=== PATIENT | male | born 1995 | race Caucasian/White ===

== ENCOUNTER 2019-04-01 16:47 | Inpatient (IN) ==
[2019-04-01] MEDS ORDERED: CLINDAMYCIN INJ 900 MG in PREMIX 1 EACH IV STA (17:32)
[2019-04-01] MEDS ORDERED: KETOROLAC 30 MG/1 ML VIAL IV STA (17:32)
[2019-04-01] MEDS ORDERED: SULFAMETHOX/TRIMETHOPRIM 800-160 MG TABLET PO STA (17:32)
[2019-04-01 18:36] LABS: Basophils # 0.1 10*3/uL (0.0-0.2); Basophils % 0.6 % (0.0-0.8); Eosinophils # 0.1 10*3/uL (0.0-0.87); Hematocrit 40.5 VOL% (42.0-52.0); Hemoglobin 13.1 GM/DL (14.0-18.0); Immature Granulocytes % 0.3 %; Immature Granulocytes Absolute 0.04 #; Lymphocytes % 24.1 % (21.2-54.2); Mean Corpuscular HGB Conc 32.3 GM/DL (32-36); Mean Corpuscular Volume 87.9 FL (87-102); Mean Platelet Volume 8.8 FL (9.6-12.0); Monocytes % 8.6 % (1.7-12.7); Neutrophils % 65.4 % (38.7-73.9); Platelet Count 296 T/CUMM (130-400); Red Blood Count 4.61 MC/CUMM (3.8-5.5); Red Cell Distribution Width 13.2 % (9.3-17.3); White Blood Count 12.3 T/CUMM (4-12)
[2019-04-01 19:01] LABS: Albumin 3.4 G/DL (3.4-5.0); Bilirubin,Total 0.5 MG/DL (0.2-1.0); Calcium 9.1 MG/DL (8.5-10.1); Osmolality,Calculated 270.8 MOS/KG (273-304); Total Protein 8.1 G/DL (6.4-8.3)
[2019-04-01 19:39] LABS: Sedimentation Rate-Westergren 28 MM/HR (0-15)
[2019-04-01] MEDS ORDERED: KETOROLAC 15 MG/1 ML VIAL IV PRN (22:09)
[2019-04-01] MEDS ORDERED: ACETAMINOPHEN 325 MG TABLET PO PRN (22:09)
[2019-04-01] MEDS: SODIUM CHLORIDE 0.9% 1,000 ML IV SCH (22:45)
[2019-04-01] MEDS: VANCOMYCIN INJ 1,000 MG in SODIUM CHLORIDE 0.9% 250 ML IV SCH (22:48)
[2019-04-02] MEDS: NICOTINE 21 MG/24 HR PATCH TRANSDERM SCH ×2 (00:32→11:49)
[2019-04-02] MEDS: CEFEPIME 1,000 MG in SODIUM CHLORIDE 0.9% 100 ML IV SCH ×5 (00:32→23:43)
[2019-04-02] MEDS ORDERED: INFLUENZA VIRUS VACCINE 0.5 ML SYRINGE IM ONE (01:34)
[2019-04-02 04:44] LABS: Basophils # 0.1 10*3/uL (0.0-0.2); Basophils % 0.8 % (0.0-0.8); Eosinophils # 0.2 10*3/uL (0.0-0.87); Eosinophils % 3.5 % (0.00-10.9); Hematocrit 36.9 VOL% (42.0-52.0); Hemoglobin 12.1 GM/DL (14.0-18.0); Immature Granulocytes % 0.3 %; Immature Granulocytes Absolute 0.02 #; Lymphocytes # 2.4 10*3/uL (1.4-4.0); Mean Corpuscular HGB Conc 32.8 GM/DL (32-36); Mean Corpuscular Volume 87.9 FL (87-102); Mean Platelet Volume 8.9 FL (9.6-12.0); Monocytes % 8.9 % (1.7-12.7); Neutrophils % 49.5 % (38.7-73.9); Platelet Count 224 T/CUMM (130-400); Red Cell Distribution Width 13.2 % (9.3-17.3); White Blood Count 6.4 T/CUMM (4-12)
[2019-04-02 04:59] LABS: Calcium 8.8 MG/DL (8.5-10.1); Osmolality,Calculated 277.4 MOS/KG (273-304)
[2019-04-02] MEDS: VANCOMYCIN INJ 1,000 MG in SODIUM CHLORIDE 0.9% 250 ML IV SCH ×3 (06:03→22:00)
[2019-04-02] MEDS ORDERED: NEOMYCIN/POLYMYXIN/BACITRACIN OINT 28.4 GM TUBE TOP ONE (10:24)
[2019-04-02] MEDS ORDERED: ONDANSETRON 4 MG/2 ML VIAL ONE (10:55)
[2019-04-02] MEDS ORDERED: MIDAZOLAM 2 MG/2 ML VIAL ONE (10:55)
[2019-04-02] MEDS ORDERED: LIDOCAINE 2% 5 ML VIAL ONE (10:55)
[2019-04-02] MEDS ORDERED: SEVOFLURANE 1 UNIT/15 MINUTE INH ONE (10:55)
[2019-04-02] MEDS ORDERED: fentaNYL 100 MCG/2 ML VIAL ONE (10:55)
[2019-04-02] MEDS ORDERED: PROPOFOL 200 MG/20 ML VIAL IV ONE (10:55)
[2019-04-02] MEDS ORDERED: HYDROmorphone 2 MG/1 ML VIAL ONE (11:25)
[2019-04-02] MEDS: HYDROmorphone 2 MG/1 ML VIAL IV PRN ×4 (11:26→11:42)
[2019-04-02] MEDS: SODIUM CHLORIDE 0.9% 1,000 ML IV SCH ×2 (11:49→17:15)
[2019-04-02] MEDS: MORPHINE 4 MG/1 ML VIAL IV PRN ×2 (17:15→21:54)
[2019-04-02] MEDS: ONDANSETRON 4 MG/2 ML VIAL IV PRN (17:15)
[2019-04-02] MEDS: ENOXAPARIN 40 MG/0.4 ML SYRINGE SUBCUT SCH ×2 (17:56→21:56)
[2019-04-03 04:17] LABS: Basophils % 0.5 % (0.0-0.8); Eosinophils # 0.2 10*3/uL (0.0-0.87); Eosinophils % 2.4 % (0.00-10.9); Hematocrit 39.9 VOL% (42.0-52.0); Hemoglobin 13.1 GM/DL (14.0-18.0); Immature Granulocytes % 0.4 %; Immature Granulocytes Absolute 0.03 #; Lymphocytes # 2.4 10*3/uL (1.4-4.0); Lymphocytes % 32.7 % (21.2-54.2); Mean Corpuscular HGB Conc 32.8 GM/DL (32-36); Mean Corpuscular Volume 86.4 FL (87-102); Mean Platelet Volume 8.9 FL (9.6-12.0); Monocytes % 8.7 % (1.7-12.7); Neutrophils % 55.3 % (38.7-73.9); Platelet Count 249 T/CUMM (130-400); Red Blood Count 4.62 MC/CUMM (3.8-5.5); Red Cell Distribution Width 12.6 % (9.3-17.3); White Blood Count 7.4 T/CUMM (4-12)
[2019-04-03 05:17] LABS: Osmolality,Calculated 278.3 MOS/KG (273-304)
[2019-04-03] MEDS: CEFEPIME 1,000 MG in SODIUM CHLORIDE 0.9% 100 ML IV SCH ×3 (05:22→18:27)
[2019-04-03] MEDS: VANCOMYCIN INJ 1,000 MG in SODIUM CHLORIDE 0.9% 250 ML IV SCH ×3 (06:34→22:50)
[2019-04-03] MEDS ORDERED: CHLORHEXIDINE 4% SOLN 118 ML BOTTLE TOP ONE (07:19)
[2019-04-03] MEDS: MORPHINE 4 MG/1 ML VIAL IV PRN (08:10)
[2019-04-03] MEDS: SODIUM CHLORIDE 0.9% 1,000 ML IV SCH ×2 (15:29→19:36)
[2019-04-03] MEDS: ENOXAPARIN 40 MG/0.4 ML SYRINGE SUBCUT SCH (22:50)
[2019-04-04] MEDS: CEFEPIME 1,000 MG in SODIUM CHLORIDE 0.9% 100 ML IV SCH ×4 (00:38→18:32)
[2019-04-04] MEDS: SODIUM CHLORIDE 0.9% 1,000 ML IV SCH ×2 (06:21→10:57)
[2019-04-04] MEDS: VANCOMYCIN INJ 1,000 MG in SODIUM CHLORIDE 0.9% 250 ML IV SCH ×3 (06:42→22:46)
[2019-04-04] MEDS: MORPHINE 4 MG/1 ML VIAL IV PRN (09:39)
[2019-04-04] MEDS: ENOXAPARIN 40 MG/0.4 ML SYRINGE SUBCUT SCH (22:05)
[2019-04-05] MEDS: CEFEPIME 1,000 MG in SODIUM CHLORIDE 0.9% 100 ML IV SCH ×5 (00:53→23:10)
[2019-04-05] MEDS: ONDANSETRON 4 MG/2 ML VIAL IV PRN ×2 (01:14→06:12)
[2019-04-05] MEDS: MORPHINE 4 MG/1 ML VIAL IV PRN ×4 (01:15→21:33)
[2019-04-05] MEDS: SODIUM CHLORIDE 0.9% 1,000 ML IV SCH ×3 (01:46→16:21)
[2019-04-05] MEDS: LACTULOSE 20 GM/30 ML UDCUP PO PRN ×2 (01:46→06:12)
[2019-04-05 04:58] LABS: Basophils % 0.6 % (0.0-0.8); Eosinophils # 0.2 10*3/uL (0.0-0.87); Eosinophils % 2.6 % (0.00-10.9); Hematocrit 39.7 VOL% (42.0-52.0); Hemoglobin 12.9 GM/DL (14.0-18.0); Immature Granulocytes % 0.4 %; Immature Granulocytes Absolute 0.03 #; Lymphocytes # 1.9 10*3/uL (1.4-4.0); Lymphocytes % 26.8 % (21.2-54.2); Mean Corpuscular HGB Conc 32.5 GM/DL (32-36); Mean Corpuscular Volume 85.6 FL (87-102); Mean Platelet Volume 8.8 FL (9.6-12.0); Monocytes % 5.5 % (1.7-12.7); Neutrophils % 64.1 % (38.7-73.9); Platelet Count 302 T/CUMM (130-400); Red Blood Count 4.64 MC/CUMM (3.8-5.5); Red Cell Distribution Width 12.4 % (9.3-17.3); White Blood Count 7.1 T/CUMM (4-12)
[2019-04-05 05:25] LABS: Calcium 8.8 MG/DL (8.5-10.1); Osmolality,Calculated 283.1 MOS/KG (273-304)
[2019-04-05] MEDS: VANCOMYCIN INJ 1,000 MG in SODIUM CHLORIDE 0.9% 250 ML IV SCH (06:13)
[2019-04-05] MEDS: VANCOMYCIN INJ 1,250 MG in SODIUM CHLORIDE 0.9% 250 ML IV SCH (15:13)
[2019-04-05] MEDS: ENOXAPARIN 40 MG/0.4 ML SYRINGE SUBCUT SCH (22:38)
[2019-04-06] MEDS: VANCOMYCIN INJ 1,250 MG in SODIUM CHLORIDE 0.9% 250 ML IV SCH ×3 (00:05→17:24)
[2019-04-06 05:04] LABS: Basophils # 0.1 10*3/uL (0.0-0.2); Eosinophils # 0.2 10*3/uL (0.0-0.87); Eosinophils % 3.9 % (0.00-10.9); Hematocrit 39.1 VOL% (42.0-52.0); Hemoglobin 12.7 GM/DL (14.0-18.0); Immature Granulocytes % 0.3 %; Immature Granulocytes Absolute 0.02 #; Lymphocytes # 2.5 10*3/uL (1.4-4.0); Lymphocytes % 43.2 % (21.2-54.2); Mean Corpuscular HGB Conc 32.5 GM/DL (32-36); Mean Corpuscular Volume 86.9 FL (87-102); Mean Platelet Volume 8.9 FL (9.6-12.0); Monocytes % 6.2 % (1.7-12.7); Neutrophils % 45.4 % (38.7-73.9); Platelet Count 307 T/CUMM (130-400); Red Cell Distribution Width 12.6 % (9.3-17.3); White Blood Count 5.8 T/CUMM (4-12)
[2019-04-06 05:30] LABS: Calcium 8.8 MG/DL (8.5-10.1)
[2019-04-06] MEDS: CEFEPIME 1,000 MG in SODIUM CHLORIDE 0.9% 100 ML IV SCH (05:50)
[2019-04-06] MEDS: MORPHINE 4 MG/1 ML VIAL IV PRN (09:14)
[2019-04-06] MEDS: SODIUM CHLORIDE 0.9% 1,000 ML IV SCH ×2 (13:50→21:16)
[2019-04-06] MEDS: ENOXAPARIN 40 MG/0.4 ML SYRINGE SUBCUT SCH ×2 (21:49)
[2019-04-07] MEDS: VANCOMYCIN INJ 1,250 MG in SODIUM CHLORIDE 0.9% 250 ML IV SCH ×3 (02:28→19:26)
[2019-04-07] MEDS: SODIUM CHLORIDE 0.9% 1,000 ML IV SCH (05:07)
[2019-04-07 05:15] LABS: Basophils # 0.1 10*3/uL (0.0-0.2); Basophils % 0.7 % (0.0-0.8); Eosinophils # 0.2 10*3/uL (0.0-0.87); Eosinophils % 2.9 % (0.00-10.9); Hematocrit 36.7 VOL% (42.0-52.0); Hemoglobin 12.1 GM/DL (14.0-18.0); Immature Granulocytes % 0.4 %; Immature Granulocytes Absolute 0.03 #; Monocytes % 7.4 % (1.7-12.7); Neutrophils % 32.6 % (38.7-73.9); Platelet Count 284 T/CUMM (130-400); Red Blood Count 4.22 MC/CUMM (3.8-5.5); Red Cell Distribution Width 12.8 % (9.3-17.3); White Blood Count 7.1 T/CUMM (4-12)
[2019-04-07 05:33] LABS: Calcium 8.7 MG/DL (8.5-10.1)
[2019-04-07 05:36] LABS: Eosinophils 4 % (0-10); Hypochromasia 1+; Lymphocytes 51 % (20-55); Platelet Estimate Adequate; Segmented Neutrophils 37 % (50-85); Total Cells Counted 100
[2019-04-07] MEDS ORDERED: IBUPROFEN 600 MG TABLET PO PRN (06:45)
[2019-04-07] MEDS: ENOXAPARIN 40 MG/0.4 ML SYRINGE SUBCUT SCH (22:07)
[2019-04-08] MEDS: VANCOMYCIN INJ 1,250 MG in SODIUM CHLORIDE 0.9% 250 ML IV SCH ×3 (02:39→18:14)
[2019-04-08] MEDS: ENOXAPARIN 40 MG/0.4 ML SYRINGE SUBCUT SCH (21:20)
[2019-04-09] MEDS: VANCOMYCIN INJ 1,250 MG in SODIUM CHLORIDE 0.9% 250 ML IV SCH ×3 (01:04→17:09)
[2019-04-09 10:01] LABS: Calcium 8.5 MG/DL (8.5-10.1); Osmolality,Calculated 278.4 MOS/KG (273-304)
[2019-04-09] MEDS: ENOXAPARIN 40 MG/0.4 ML SYRINGE SUBCUT SCH (21:16)
[2019-04-10] MEDS: VANCOMYCIN INJ 1,250 MG in SODIUM CHLORIDE 0.9% 250 ML IV SCH ×3 (00:53→17:00)
[2019-04-10 07:25] LABS: Calcium 9.2 MG/DL (8.5-10.1); Osmolality,Calculated 286.8 MOS/KG (273-304)
[2019-04-10 16:25] VITALS: BP 131/64
== END 2019-04-10 17:00 | disposition home or self-care (01) | DRG 580 ==
LOC: N.ED 16:47 → SUATTDRO 19:15 → N.EDINP 19:15 → N.3E 19:50
PROVIDERS: ADMIT Internal Medicine; ATTEND Internal Medicine Cardiovascular Disease

== ENCOUNTER 2019-05-07 05:45 | Inpatient (IN) ==
[2019-05-07 06:30] LABS: Basophils # 0.1 10*3/uL (0.0-0.2); Basophils % 0.7 % (0.0-0.8); Eosinophils # 0.1 10*3/uL (0.0-0.87); Eosinophils % 1.2 % (0.00-10.9); Hematocrit 40.3 VOL% (42.0-52.0); Hemoglobin 12.7 GM/DL (14.0-18.0); Immature Granulocytes % 0.3 %; Immature Granulocytes Absolute 0.02 #; Lymphocytes # 2.3 10*3/uL (1.4-4.0); Lymphocytes % 31.2 % (21.2-54.2); Mean Corpuscular HGB Conc 31.5 GM/DL (32-36); Mean Corpuscular Volume 87.6 FL (87-102); Mean Platelet Volume 8.4 FL (9.6-12.0); Monocytes % 4.5 % (1.7-12.7); Neutrophils % 62.1 % (38.7-73.9); Platelet Count 434 T/CUMM (130-400); Red Cell Distribution Width 13.3 % (9.3-17.3); White Blood Count 7.4 T/CUMM (4-12)
[2019-05-07 06:46] LABS: Calcium 9.2 MG/DL (8.5-10.1); Osmolality,Calculated 274.7 MOS/KG (273-304)
[2019-05-07 09:31] LABS: Barbiturates Screen,Urine Negative (Negative); Benzodiazepines Screen,Urine Negative (Negative); Cannabinoid Screen,Urine Positive (Negative); Opiate Screen,Urine Negative (Negative); Phencyclidine Screen,Urine Negative (Negative)
[2019-05-07] MEDS ORDERED: ONDANSETRON 4 MG/2 ML VIAL IV PRN (11:06)
[2019-05-07] MEDS ORDERED: ACETAMINOPHEN 325 MG TABLET PO PRN (11:06)
[2019-05-07] MEDS ORDERED: amLODIPine 5 MG TABLET PO STA (11:29)
[2019-05-07] MEDS ORDERED: VANCOMYCIN INJ 1,500 MG in SODIUM CHLORIDE 0.9% 500 ML IV SCH (11:30)
[2019-05-07] MEDS: ENOXAPARIN 40 MG/0.4 ML SYRINGE SUBCUT SCH (13:37)
[2019-05-07] MEDS: VANCOMYCIN INJ 1,250 MG in SODIUM CHLORIDE 0.9% 250 ML IV SCH ×2 (14:14→20:57)
[2019-05-07] MEDS: SODIUM CHLORIDE 0.9% 1,000 ML IV SCH ×2 (14:14→20:58)
[2019-05-07 14:47] LABS: HIV Antigen/Antibody Result Nonreactive (Nonreactive)
[2019-05-07 14:51] LABS: Hepatitis B Core IgM Quant 0.09 Index; Hepatitis B Surface Ag Quant 0.14 Index; Hepatitis B Surface Ag Result Negative (Negative); Hepatitis C Virus Ab Quant < 0.02 Index; Hepatitis C Virus Ab Result Negative (Negative)
[2019-05-08] MEDS: SODIUM CHLORIDE 0.9% 1,000 ML IV SCH ×2 (03:02→12:37)
[2019-05-08] MEDS: VANCOMYCIN INJ 1,250 MG in SODIUM CHLORIDE 0.9% 250 ML IV SCH ×3 (04:59→21:16)
[2019-05-08 05:40] LABS: Basophils # 0.1 10*3/uL (0.0-0.2); Eosinophils # 0.2 10*3/uL (0.0-0.87); Eosinophils % 3.6 % (0.00-10.9); Hematocrit 38.6 VOL% (42.0-52.0); Hemoglobin 12.3 GM/DL (14.0-18.0); Immature Granulocytes % 0.4 %; Immature Granulocytes Absolute 0.02 #; Lymphocytes # 2.4 10*3/uL (1.4-4.0); Lymphocytes % 49.7 % (21.2-54.2); Mean Corpuscular HGB Conc 31.9 GM/DL (32-36); Mean Corpuscular Volume 87.3 FL (87-102); Mean Platelet Volume 8.5 FL (9.6-12.0); Monocytes % 7.3 % (1.7-12.7); Platelet Count 396 T/CUMM (130-400); Red Blood Count 4.42 MC/CUMM (3.8-5.5); Red Cell Distribution Width 13.2 % (9.3-17.3); White Blood Count 4.8 T/CUMM (4-12)
[2019-05-08 06:11] LABS: Eosinophils 1 % (0-10); Lymphocytes 57 % (20-55); Myelocytes 1 %; Platelet Estimate Normal; Polychromasia Slight; Segmented Neutrophils 36 % (50-85); Total Cells Counted 100
[2019-05-08 06:12] LABS: Albumin 2.9 G/DL (3.4-5.0); Bilirubin,Total 1.3 MG/DL (0.2-1.0); Calcium 8.4 MG/DL (8.5-10.1); Osmolality,Calculated 275.5 MOS/KG (273-304); Total Protein 6.6 G/DL (6.4-8.3)
[2019-05-08] MEDS: NICOTINE 21 MG/24 HR PATCH TRANSDERM SCH (10:11)
[2019-05-08] MEDS: amLODIPine 5 MG TABLET PO SCH (10:12)
[2019-05-08] MEDS: PANTOPRAZOLE 40 MG TABLET PO SCH (10:13)
[2019-05-08] MEDS: buPROPion 100 MG TABLET PO SCH ×2 (11:14→21:15)
[2019-05-08] MEDS: ENOXAPARIN 40 MG/0.4 ML SYRINGE SUBCUT SCH (13:56)
[2019-05-09 05:50] LABS: Basophils # 0.1 10*3/uL (0.0-0.2); Basophils % 1.1 % (0.0-0.8); Eosinophils # 0.1 10*3/uL (0.0-0.87); Eosinophils % 2.2 % (0.00-10.9); Hematocrit 41.2 VOL% (42.0-52.0); Hemoglobin 13.2 GM/DL (14.0-18.0); Lymphocytes # 2.7 10*3/uL (1.4-4.0); Lymphocytes % 48.5 % (21.2-54.2); Mean Corpuscular Volume 87.7 FL (87-102); Mean Platelet Volume 8.3 FL (9.6-12.0); Neutrophils % 42.2 % (38.7-73.9); Platelet Count 383 T/CUMM (130-400); Red Cell Distribution Width 13.2 % (9.3-17.3); White Blood Count 5.5 T/CUMM (4-12)
[2019-05-09 06:21] LABS: Albumin 2.9 G/DL (3.4-5.0); Bilirubin,Total 0.9 MG/DL (0.2-1.0); Calcium 8.5 MG/DL (8.5-10.1); Osmolality,Calculated 275.5 MOS/KG (273-304); Total Protein 6.6 G/DL (6.4-8.3)
[2019-05-09] MEDS: VANCOMYCIN INJ 1,250 MG in SODIUM CHLORIDE 0.9% 250 ML IV SCH ×2 (10:09→18:49)
[2019-05-09] MEDS: PANTOPRAZOLE 40 MG TABLET PO SCH (10:10)
[2019-05-09] MEDS: NICOTINE 21 MG/24 HR PATCH TRANSDERM SCH (10:10)
[2019-05-09] MEDS: amLODIPine 5 MG TABLET PO SCH (10:10)
[2019-05-09] MEDS: buPROPion 100 MG TABLET PO SCH ×2 (10:10→23:16)
[2019-05-09] MEDS: ENOXAPARIN 40 MG/0.4 ML SYRINGE SUBCUT SCH (16:40)
[2019-05-09] MEDS: SODIUM CHLORIDE 0.9% 1,000 ML IV SCH (18:50)
[2019-05-09] MEDS ORDERED: VANCOMYCIN INJ 1,750 MG in SODIUM CHLORIDE 0.9% 500 ML IV ONE (22:00)
[2019-05-10 05:16] LABS: Basophils # 0.1 10*3/uL (0.0-0.2); Eosinophils # 0.2 10*3/uL (0.0-0.87); Eosinophils % 2.4 % (0.00-10.9); Hematocrit 39.2 VOL% (42.0-52.0); Hemoglobin 12.5 GM/DL (14.0-18.0); Immature Granulocytes % 0.5 %; Immature Granulocytes Absolute 0.03 #; Lymphocytes # 2.4 10*3/uL (1.4-4.0); Lymphocytes % 39.4 % (21.2-54.2); Mean Corpuscular HGB Conc 31.9 GM/DL (32-36); Mean Corpuscular Volume 88.1 FL (87-102); Mean Platelet Volume 8.5 FL (9.6-12.0); Monocytes % 5.5 % (1.7-12.7); Neutrophils % 51.2 % (38.7-73.9); Platelet Count 386 T/CUMM (130-400); Red Blood Count 4.45 MC/CUMM (3.8-5.5); Red Cell Distribution Width 13.4 % (9.3-17.3); White Blood Count 6.2 T/CUMM (4-12)
[2019-05-10 05:46] LABS: Albumin 2.7 G/DL (3.4-5.0); Bilirubin,Total 0.4 MG/DL (0.2-1.0); Calcium 8.4 MG/DL (8.5-10.1); Osmolality,Calculated 285.1 MOS/KG (273-304); Total Protein 6.2 G/DL (6.4-8.3)
[2019-05-10] MEDS: VANCOMYCIN INJ 1,250 MG in SODIUM CHLORIDE 0.9% 250 ML IV SCH ×3 (06:43→21:56)
[2019-05-10] MEDS ORDERED: MAGNESIUM SULF RIDER 4 GM in PREMIX 1 EACH IV PRN (08:00)
[2019-05-10] MEDS ORDERED: MAGNESIUM SULF RIDER 2 GM in PREMIX 1 EACH IV PRN (08:00)
[2019-05-10] MEDS: SODIUM CHLORIDE 0.9% 1,000 ML IV SCH ×3 (08:19→23:49)
[2019-05-10] MEDS: amLODIPine 5 MG TABLET PO SCH (08:21)
[2019-05-10] MEDS: buPROPion 100 MG TABLET PO SCH ×2 (08:21→20:27)
[2019-05-10] MEDS: NICOTINE 21 MG/24 HR PATCH TRANSDERM SCH (08:21)
[2019-05-10] MEDS: PANTOPRAZOLE 40 MG TABLET PO SCH (08:21)
[2019-05-10] MEDS: ENOXAPARIN 40 MG/0.4 ML SYRINGE SUBCUT SCH (11:26)
[2019-05-11] MEDS: VANCOMYCIN INJ 1,250 MG in SODIUM CHLORIDE 0.9% 250 ML IV SCH (05:40)
[2019-05-11] MEDS: SODIUM CHLORIDE 0.9% 1,000 ML IV SCH (06:16)
[2019-05-11] MEDS: amLODIPine 5 MG TABLET PO SCH (08:27)
[2019-05-11] MEDS: NICOTINE 21 MG/24 HR PATCH TRANSDERM SCH (08:27)
[2019-05-11] MEDS: buPROPion 100 MG TABLET PO SCH (08:28)
[2019-05-11] MEDS: PANTOPRAZOLE 40 MG TABLET PO SCH (08:28)
[2019-05-11 09:16] LABS: Calcium 8.6 MG/DL (8.5-10.1); Osmolality,Calculated 279.5 MOS/KG (273-304)
[2019-05-11 09:36] VITALS: BP 146/83
== END 2019-05-11 11:34 | disposition home or self-care (01) | DRG 603 ==
LOC: N.ED 05:45 → N.EDINP 05:45 → N.5E 11:49
PROVIDERS: ADMIT Internal Medicine; ATTEND Internal Medicine

== ENCOUNTER 2019-07-03 20:13 | Inpatient (IN) ==
[2019-07-03] MEDS ORDERED: MORPHINE 4 MG/1 ML VIAL IV ONE (23:41)
[2019-07-03] MEDS ORDERED: ONDANSETRON 4 MG/2 ML VIAL IV ONE (23:41)
[2019-07-03] MEDS ORDERED: SODIUM CHLORIDE 0.9% 1,000 ML IV STA (23:41)
[2019-07-03] MEDS ORDERED: ACETAMINOPHEN 325 MG TABLET PO ONE (23:41)
[2019-07-03 23:53] LABS: Basophils # 0.1 10*3/uL (0.0-0.2); Basophils % 0.3 % (0.0-0.8); Hematocrit 43.2 VOL% (42.0-52.0); Immature Granulocytes % 0.5 %; Immature Granulocytes Absolute 0.11 #; Lymphocytes # 3.2 10*3/uL (1.4-4.0); Lymphocytes % 14.5 % (21.2-54.2); Mean Corpuscular HGB Conc 32.4 GM/DL (32-36); Mean Corpuscular Volume 86.9 FL (87-102); Monocytes % 8.7 % (1.7-12.7); Platelet Count 370 T/CUMM (130-400); Red Blood Count 4.97 MC/CUMM (3.8-5.5); Red Cell Distribution Width 13.7 % (9.3-17.3); White Blood Count 22.1 T/CUMM (4-12)
[2019-07-04 00:04] LABS: INR 1.1
[2019-07-04 00:08] LABS: Albumin 3.2 G/DL (3.4-5.0); Bilirubin,Total 1.1 MG/DL (0.2-1.0); Calcium 9.4 MG/DL (8.5-10.1); Osmolality,Calculated 260.7 MOS/KG (273-304); Total Protein 8.6 G/DL (6.4-8.3)
[2019-07-04 00:55] LABS: Barbiturates Screen,Urine Negative (Negative); Benzodiazepines Screen,Urine Negative (Negative); Cannabinoid Screen,Urine Positive (Negative); Opiate Screen,Urine Positive (Negative); Phencyclidine Screen,Urine Negative (Negative)
[2019-07-04] MEDS ORDERED: SODIUM CHLORIDE 0.9% 1,000 ML IV STA (01:06)
[2019-07-04] MEDS ORDERED: KETOROLAC 30 MG/1 ML VIAL IV ONE (01:06)
[2019-07-04] MEDS ORDERED: VANCOMYCIN INJ 1,000 MG in SODIUM CHLORIDE 0.9% 250 ML IV STA (01:06)
[2019-07-04] MEDS ORDERED: NICOTINE 21 MG/24 HR PATCH TRANSDERM PRN (01:33)
[2019-07-04] MEDS ORDERED: ONDANSETRON 4 MG/2 ML VIAL IV PRN (01:33)
[2019-07-04 01:53] LABS: Band Neutrophils 2 % (0-10); Lymphocytes 14 % (20-55); Platelet Estimate Normal; Segmented Neutrophils 74 % (50-85); Total Cells Counted 100
[2019-07-04] MEDS: ACETAMINOPHEN 325 MG TABLET PO PRN ×2 (03:22→20:20)
[2019-07-04] MEDS: SODIUM CHLORIDE 0.9% 1,000 ML IV SCH ×2 (03:23→12:35)
[2019-07-04] MEDS: MORPHINE 4 MG/1 ML VIAL IV PRN ×2 (04:39→20:19)
[2019-07-04 09:05] LABS: Basophils # 0.1 10*3/uL (0.0-0.2); Basophils % 0.4 % (0.0-0.8); Eosinophils % 0.2 % (0.00-10.9); Hematocrit 40.6 VOL% (42.0-52.0); Hemoglobin 12.9 GM/DL (14.0-18.0); Immature Granulocytes % 0.7 %; Immature Granulocytes Absolute 0.11 #; Lymphocytes # 1.9 10*3/uL (1.4-4.0); Lymphocytes % 13.1 % (21.2-54.2); Mean Corpuscular HGB Conc 31.8 GM/DL (32-36); Mean Corpuscular Volume 89.6 FL (87-102); Mean Platelet Volume 9.4 FL (9.6-12.0); Monocytes % 7.8 % (1.7-12.7); Neutrophils % 77.8 % (38.7-73.9); Platelet Count 214 T/CUMM (130-400); Red Blood Count 4.53 MC/CUMM (3.8-5.5); Red Cell Distribution Width 13.8 % (9.3-17.3); White Blood Count 14.8 T/CUMM (4-12)
[2019-07-04] MEDS: VANCOMYCIN INJ 1,250 MG in SODIUM CHLORIDE 0.9% 250 ML IV SCH ×2 (09:11→17:16)
[2019-07-04 09:23] LABS: Calcium 8.3 MG/DL (8.5-10.1); Osmolality,Calculated 270.8 MOS/KG (273-304)
[2019-07-04] MEDS ORDERED: BUPIVACAINE MPF 0.25% 30 ML VIAL ONE (12:35)
[2019-07-04] MEDS ORDERED: LIDOCAINE 1%/EPI INJ 20 ML VIAL ONE (12:35)
[2019-07-04] MEDS: PIPERACILLIN/TAZOBACTAM 3,375 MG in SODIUM CHLORIDE 0.9% 100 ML IV SCH ×3 (13:57→23:14)
[2019-07-04] MEDS ORDERED: ceFAZolin 1,000 MG VIAL ONE (14:25)
[2019-07-04] MEDS ORDERED: propofoL 200 MG/20 ML VIAL IV ONE (15:20)
[2019-07-04] MEDS ORDERED: SEVOFLURANE 1 UNIT/15 MINUTE INH ONE (15:20)
[2019-07-04] MEDS ORDERED: LIDOCAINE 2% 5 ML VIAL ONE (15:20)
[2019-07-04] MEDS ORDERED: fentaNYL 100 MCG/2 ML VIAL ONE (15:20)
[2019-07-04] MEDS ORDERED: HYDROmorphone 2 MG/1 ML VIAL ONE (15:20)
[2019-07-04] MEDS ORDERED: SUCCINYLCHOLINE 200 MG/10 ML VIAL ONE (15:21)
[2019-07-04] MEDS ORDERED: ROCURONIUM 100 MG/10 ML VIAL IV ONE (15:21)
[2019-07-04] MEDS ORDERED: PHENYLEPHRINE 1 MG/10 ML SYRINGE IV ONE (15:21)
[2019-07-04] MEDS ORDERED: PHENYLEPHRINE 10 MG/1 ML VIAL IV ONE (15:21)
[2019-07-04] MEDS ORDERED: LACTATED RINGERS 1,000 ML IV ONE (15:21)
[2019-07-04] MEDS: methylPREDNISolone SOD SUC 40 MG/1 ML VIAL IV SCH (17:16)
[2019-07-05] MEDS: oxyCODONE/ACETAMINOPHEN 5-325 MG TABLET PO PRN ×2 (00:21→06:30)
[2019-07-05] MEDS: VANCOMYCIN INJ 1,250 MG in SODIUM CHLORIDE 0.9% 250 ML IV SCH ×3 (03:25→20:25)
[2019-07-05 05:15] LABS: Basophils % 0.1 % (0.0-0.8); Hematocrit 36.4 VOL% (42.0-52.0); Hemoglobin 11.7 GM/DL (14.0-18.0); Immature Granulocytes Absolute 0.13 #; Lymphocytes # 1.2 10*3/uL (1.4-4.0); Lymphocytes % 9.1 % (21.2-54.2); Mean Corpuscular HGB Conc 32.1 GM/DL (32-36); Mean Corpuscular Volume 87.5 FL (87-102); Mean Platelet Volume 9.5 FL (9.6-12.0); Monocytes % 3.8 % (1.7-12.7); Platelet Count 252 T/CUMM (130-400); Red Blood Count 4.16 MC/CUMM (3.8-5.5); Red Cell Distribution Width 13.6 % (9.3-17.3); White Blood Count 13.6 T/CUMM (4-12)
[2019-07-05 05:52] LABS: Calcium 8.2 MG/DL (8.5-10.1); Osmolality,Calculated 276.5 MOS/KG (273-304)
[2019-07-05] MEDS: PIPERACILLIN/TAZOBACTAM 3,375 MG in SODIUM CHLORIDE 0.9% 100 ML IV SCH ×3 (06:29→23:00)
[2019-07-05] MEDS: methylPREDNISolone SOD SUC 40 MG/1 ML VIAL IV SCH (06:29)
[2019-07-05] MEDS: MORPHINE 4 MG/1 ML VIAL IV PRN ×2 (10:53→20:25)
[2019-07-05] MEDS: ENOXAPARIN 40 MG/0.4 ML SYRINGE SUBCUT SCH ×2 (10:59→11:01)
[2019-07-06] MEDS: VANCOMYCIN INJ 1,500 MG in SODIUM CHLORIDE 0.9% 500 ML IV SCH ×2 (04:12→15:18)
[2019-07-06 05:39] LABS: Basophils % 0.1 % (0.0-0.8); Eosinophils % 0.1 % (0.00-10.9); Hemoglobin 10.9 GM/DL (14.0-18.0); Immature Granulocytes % 0.7 %; Immature Granulocytes Absolute 0.13 #; Lymphocytes # 2.3 10*3/uL (1.4-4.0); Lymphocytes % 12.9 % (21.2-54.2); Mean Corpuscular Volume 85.5 FL (87-102); Mean Platelet Volume 9.8 FL (9.6-12.0); Monocytes % 5.3 % (1.7-12.7); Neutrophils % 80.9 % (38.7-73.9); Platelet Count 320 T/CUMM (130-400); Red Blood Count 3.86 MC/CUMM (3.8-5.5); Red Cell Distribution Width 13.8 % (9.3-17.3); White Blood Count 17.7 T/CUMM (4-12)
[2019-07-06] MEDS: MORPHINE 4 MG/1 ML VIAL IV PRN ×3 (05:41→20:44)
[2019-07-06 09:42] LABS: Calcium 8.2 MG/DL (8.5-10.1); Osmolality,Calculated 288.8 MOS/KG (273-304)
[2019-07-06] MEDS: PIPERACILLIN/TAZOBACTAM 3,375 MG in SODIUM CHLORIDE 0.9% 100 ML IV SCH ×2 (09:48→23:21)
[2019-07-06] MEDS: ENOXAPARIN 40 MG/0.4 ML SYRINGE SUBCUT SCH (11:29)
[2019-07-06] MEDS: oxyCODONE/ACETAMINOPHEN 5-325 MG TABLET PO PRN (19:51)
[2019-07-07] MEDS: VANCOMYCIN INJ 1,500 MG in SODIUM CHLORIDE 0.9% 500 ML IV SCH ×3 (04:17→17:37)
[2019-07-07 05:37] LABS: Basophils % 0.5 % (0.0-0.8); Eosinophils # 0.1 10*3/uL (0.0-0.87); Eosinophils % 0.9 % (0.00-10.9); Hematocrit 36.1 VOL% (42.0-52.0); Hemoglobin 11.6 GM/DL (14.0-18.0); Immature Granulocytes % 0.9 %; Immature Granulocytes Absolute 0.06 #; Lymphocytes # 2.8 10*3/uL (1.4-4.0); Lymphocytes % 43.9 % (21.2-54.2); Mean Corpuscular HGB Conc 32.1 GM/DL (32-36); Mean Corpuscular Volume 87.6 FL (87-102); Mean Platelet Volume 9.4 FL (9.6-12.0); Monocytes % 6.4 % (1.7-12.7); Neutrophils % 47.4 % (38.7-73.9); Platelet Count 343 T/CUMM (130-400); Red Blood Count 4.12 MC/CUMM (3.8-5.5); Red Cell Distribution Width 13.9 % (9.3-17.3); White Blood Count 6.4 T/CUMM (4-12)
[2019-07-07 05:56] LABS: Calcium 8.5 MG/DL (8.5-10.1); Osmolality,Calculated 280.3 MOS/KG (273-304)
[2019-07-07 06:22] LABS: Platelet Estimate Normal
[2019-07-07 06:25] LABS: Pappenheimer Bodies Slight
[2019-07-07] MEDS: PIPERACILLIN/TAZOBACTAM 3,375 MG in SODIUM CHLORIDE 0.9% 100 ML IV SCH ×2 (08:30→17:20)
[2019-07-07] MEDS: oxyCODONE/ACETAMINOPHEN 5-325 MG TABLET PO PRN (09:20)
[2019-07-07] MEDS: ENOXAPARIN 40 MG/0.4 ML SYRINGE SUBCUT SCH (12:28)
[2019-07-07] MEDS ORDERED: PROMETHAZINE INJ 25 MG in SODIUM CHLORIDE 0.9% 50 ML IV PRN (15:09)
[2019-07-07] MEDS ORDERED: ONDANSETRON 4 MG/2 ML VIAL IV PRN (15:09)
[2019-07-07] MEDS ORDERED: MEPERIDINE 25 MG/1 ML VIAL IV PRN (15:09)
[2019-07-07] MEDS ORDERED: diphenhydrAMINE 50 MG/1 ML VIAL IV PRN (15:09)
[2019-07-07] MEDS ORDERED: ceFAZolin 1,000 MG VIAL ONE (15:52)
[2019-07-07] MEDS ORDERED: MIDAZOLAM 2 MG/2 ML VIAL ONE (16:39)
[2019-07-07] MEDS ORDERED: fentaNYL 100 MCG/2 ML VIAL ONE (16:39)
[2019-07-07] MEDS ORDERED: PHENYLEPHRINE 1 MG/10 ML SYRINGE IV ONE (16:40)
[2019-07-07] MEDS ORDERED: propofoL 200 MG/20 ML VIAL IV ONE (16:40)
[2019-07-07] MEDS ORDERED: SEVOFLURANE 1 UNIT/15 MINUTE INH ONE (16:40)
[2019-07-07] MEDS ORDERED: LIDOCAINE 2% 5 ML VIAL ONE (16:40)
[2019-07-07] MEDS ORDERED: SUCCINYLCHOLINE 200 MG/10 ML VIAL ONE (16:40)
[2019-07-07] MEDS ORDERED: ONDANSETRON 4 MG/2 ML VIAL ONE (16:40)
[2019-07-07] MEDS: MORPHINE 4 MG/1 ML VIAL IV PRN (22:55)
[2019-07-08] MEDS: VANCOMYCIN INJ 1,500 MG in SODIUM CHLORIDE 0.9% 500 ML IV SCH ×3 (03:20→17:09)
[2019-07-08] MEDS: MORPHINE 4 MG/1 ML VIAL IV PRN ×3 (03:20→20:10)
[2019-07-08 05:23] LABS: Basophils % 0.2 % (0.0-0.8); Eosinophils # 0.1 10*3/uL (0.0-0.87); Eosinophils % 1.2 % (0.00-10.9); Hematocrit 35.8 VOL% (42.0-52.0); Hemoglobin 11.9 GM/DL (14.0-18.0); Immature Granulocytes % 0.7 %; Immature Granulocytes Absolute 0.06 #; Lymphocytes # 2.4 10*3/uL (1.4-4.0); Lymphocytes % 30.1 % (21.2-54.2); Mean Corpuscular HGB Conc 33.2 GM/DL (32-36); Mean Corpuscular Volume 86.1 FL (87-102); Mean Platelet Volume 9.3 FL (9.6-12.0); Monocytes % 5.1 % (1.7-12.7); Neutrophils % 62.7 % (38.7-73.9); Platelet Count 375 T/CUMM (130-400); Red Blood Count 4.16 MC/CUMM (3.8-5.5); Red Cell Distribution Width 13.8 % (9.3-17.3)
[2019-07-08 05:45] LABS: Calcium 8.4 MG/DL (8.5-10.1); Osmolality,Calculated 276.5 MOS/KG (273-304)
[2019-07-08] MEDS: PIPERACILLIN/TAZOBACTAM 3,375 MG in SODIUM CHLORIDE 0.9% 100 ML IV SCH ×2 (05:53→13:08)
[2019-07-08] MEDS: ENOXAPARIN 40 MG/0.4 ML SYRINGE SUBCUT SCH (10:03)
[2019-07-08] MEDS ORDERED: MAGNESIUM HYDROXIDE SUSP 30 ML UDCUP PO PRN (23:54)
[2019-07-09] MEDS: VANCOMYCIN INJ 1,500 MG in SODIUM CHLORIDE 0.9% 500 ML IV SCH ×3 (00:19→17:51)
[2019-07-09] MEDS: PIPERACILLIN/TAZOBACTAM 3,375 MG in SODIUM CHLORIDE 0.9% 100 ML IV SCH ×4 (02:17→21:54)
[2019-07-09 05:12] LABS: Basophils # 0.1 10*3/uL (0.0-0.2); Basophils % 0.8 % (0.0-0.8); Eosinophils # 0.2 10*3/uL (0.0-0.87); Eosinophils % 2.4 % (0.00-10.9); Hematocrit 39.6 VOL% (42.0-52.0); Hemoglobin 12.9 GM/DL (14.0-18.0); Immature Granulocytes % 1.8 %; Immature Granulocytes Absolute 0.13 #; Lymphocytes # 2.9 10*3/uL (1.4-4.0); Mean Corpuscular HGB Conc 32.6 GM/DL (32-36); Mean Corpuscular Volume 86.5 FL (87-102); Mean Platelet Volume 9.1 FL (9.6-12.0); Monocytes % 5.3 % (1.7-12.7); Neutrophils % 48.7 % (38.7-73.9); Platelet Count 436 T/CUMM (130-400); Red Blood Count 4.58 MC/CUMM (3.8-5.5); Red Cell Distribution Width 13.7 % (9.3-17.3); White Blood Count 7.1 T/CUMM (4-12)
[2019-07-09 05:21] LABS: Calcium 8.3 MG/DL (8.5-10.1)
[2019-07-09] MEDS: ENOXAPARIN 40 MG/0.4 ML SYRINGE SUBCUT SCH (11:05)
[2019-07-09] MEDS: MORPHINE 4 MG/1 ML VIAL IV PRN ×2 (11:46→21:52)
[2019-07-10] MEDS: VANCOMYCIN INJ 1,500 MG in SODIUM CHLORIDE 0.9% 500 ML IV SCH ×3 (01:43→16:11)
[2019-07-10] MEDS: PIPERACILLIN/TAZOBACTAM 3,375 MG in SODIUM CHLORIDE 0.9% 100 ML IV SCH ×3 (04:44→21:06)
[2019-07-10 05:24] LABS: Basophils # 0.1 10*3/uL (0.0-0.2); Basophils % 0.9 % (0.0-0.8); Eosinophils # 0.2 10*3/uL (0.0-0.87); Eosinophils % 2.8 % (0.00-10.9); Hematocrit 39.5 VOL% (42.0-52.0); Hemoglobin 12.9 GM/DL (14.0-18.0); Immature Granulocytes % 4.1 %; Immature Granulocytes Absolute 0.31 #; Lymphocytes # 2.8 10*3/uL (1.4-4.0); Lymphocytes % 36.8 % (21.2-54.2); Mean Corpuscular HGB Conc 32.7 GM/DL (32-36); Mean Corpuscular Volume 87.6 FL (87-102); Mean Platelet Volume 8.9 FL (9.6-12.0); Monocytes % 5.1 % (1.7-12.7); Neutrophils % 50.3 % (38.7-73.9); Platelet Count 453 T/CUMM (130-400); Red Blood Count 4.51 MC/CUMM (3.8-5.5); Red Cell Distribution Width 13.8 % (9.3-17.3); White Blood Count 7.6 T/CUMM (4-12)
[2019-07-10 05:44] LABS: Calcium 8.6 MG/DL (8.5-10.1); Osmolality,Calculated 278.5 MOS/KG (273-304)
[2019-07-10] MEDS: ENOXAPARIN 40 MG/0.4 ML SYRINGE SUBCUT SCH (10:16)
[2019-07-10] MEDS ORDERED: ceFAZolin 1,000 MG VIAL ONE (13:06)
[2019-07-10] MEDS ORDERED: propofoL 200 MG/20 ML VIAL IV ONE (13:25)
[2019-07-10] MEDS ORDERED: MIDAZOLAM 2 MG/2 ML VIAL ONE (13:25)
[2019-07-10] MEDS ORDERED: fentaNYL 100 MCG/2 ML VIAL ONE (13:25)
[2019-07-10] MEDS ORDERED: PHENYLEPHRINE 1 MG/10 ML SYRINGE IV ONE (13:25)
[2019-07-10] MEDS ORDERED: LIDOCAINE 2% 5 ML VIAL ONE (13:25)
[2019-07-10] MEDS ORDERED: SEVOFLURANE 1 UNIT/15 MINUTE INH ONE (13:25)
[2019-07-10] MEDS ORDERED: MEPERIDINE 25 MG/1 ML VIAL IV PRN (14:02)
[2019-07-10] MEDS ORDERED: ONDANSETRON 4 MG/2 ML VIAL IV PRN (14:02)
[2019-07-10] MEDS: MORPHINE 4 MG/1 ML VIAL IV PRN ×2 (18:13→22:26)
[2019-07-11] MEDS: VANCOMYCIN INJ 1,500 MG in SODIUM CHLORIDE 0.9% 500 ML IV SCH (01:10)
[2019-07-11] MEDS: PIPERACILLIN/TAZOBACTAM 3,375 MG in SODIUM CHLORIDE 0.9% 100 ML IV SCH (05:35)
[2019-07-11 05:37] LABS: Basophils # 0.1 10*3/uL (0.0-0.2); Basophils % 0.7 % (0.0-0.8); Eosinophils # 0.2 10*3/uL (0.0-0.87); Hematocrit 41.1 VOL% (42.0-52.0); Hemoglobin 13.3 GM/DL (14.0-18.0); Immature Granulocytes % 3.9 %; Immature Granulocytes Absolute 0.34 #; Lymphocytes # 2.9 10*3/uL (1.4-4.0); Mean Corpuscular HGB Conc 32.4 GM/DL (32-36); Mean Corpuscular Volume 88.4 FL (87-102); Mean Platelet Volume 8.9 FL (9.6-12.0); Monocytes % 5.7 % (1.7-12.7); Neutrophils % 54.7 % (38.7-73.9); Platelet Count 477 T/CUMM (130-400); Red Blood Count 4.65 MC/CUMM (3.8-5.5); Red Cell Distribution Width 14.2 % (9.3-17.3); White Blood Count 8.8 T/CUMM (4-12)
[2019-07-11 05:44] LABS: Calcium 8.7 MG/DL (8.5-10.1); Osmolality,Calculated 279.5 MOS/KG (273-304)
[2019-07-11 07:37] VITALS: BP 154/78
== END 2019-07-11 10:03 | disposition home or self-care (01) | DRG 581 ==
LOC: N.ED 20:13 → N.EDINP 07-04 01:33 → SUATTDRO 07-04 01:34 → N.2E 07-04 02:19
PROVIDERS: ADMIT Internal Medicine; ATTEND Phlebology

== ENCOUNTER 2020-03-01 21:28 | Inpatient (IN) ==
[2020-03-01] MEDS ORDERED: PIPERACILLIN/TAZOBACTAM 3,375 MG in SODIUM CHLORIDE 0.9% 100 ML IV STA (22:46)
[2020-03-01 23:28] LABS: Basophils % 0.2 % (0.0-0.8); Eosinophils # 0.1 10*3/uL (0.0-0.87); Eosinophils % 1.4 % (0.00-10.9); Hematocrit 36.5 VOL% (42.0-52.0); Hemoglobin 11.9 GM/DL (14.0-18.0); Immature Granulocytes % 0.2 %; Immature Granulocytes Absolute 0.02 #; Lymphocytes # 1.6 10*3/uL (1.4-4.0); Mean Corpuscular HGB Conc 32.6 GM/DL (32-36); Mean Corpuscular Volume 86.1 FL (87-102); Mean Platelet Volume 9.1 FL (9.6-12.0); Monocytes % 8.4 % (1.7-12.7); Neutrophils % 69.8 % (38.7-73.9); Platelet Count 285 T/CUMM (130-400); Red Blood Count 4.24 MC/CUMM (3.8-5.5); Red Cell Distribution Width 13.2 % (9.3-17.3)
[2020-03-01 23:30] LABS: White Blood Count 8.1 T/CUMM (4-12)
[2020-03-01 23:40] LABS: Alanine Aminotransferase 44 U/L (16-61); Albumin 2.8 G/DL (3.4-5.0); Alkaline Phosphatase 129 U/L (45-117); Aspartate Amino Transferase 29 U/L (0-37); Bilirubin,Total < 0.39 MG/DL (0.2-1.0); Blood Urea Nitrogen 12 MG/DL (7-18); Calcium 8.8 MG/DL (8.5-10.1); Estimated Glom Filtration Rate 144 ML/MIN; Glucose 133 MG/DL (74-106); Total Protein 7.4 G/DL (6.4-8.3)
[2020-03-01] MEDS: SODIUM CHLORIDE 0.9% 1,000 ML IV SCH (23:52)
[2020-03-02] MEDS ORDERED: ACETAMINOPHEN 325 MG TABLET PO PRN (00:05)
[2020-03-02] MEDS ORDERED: ONDANSETRON 4 MG/2 ML VIAL IV PRN (00:05)
[2020-03-02] MEDS ORDERED: GLUCAGON 1 MG VIAL IM PRN (00:05)
[2020-03-02] MEDS ORDERED: DEXTROSE 50% 25 GM/50 ML VIAL IV PRN (00:05)
[2020-03-02] MEDS ORDERED: NICOTINE 21 MG/24 HR PATCH TRANSDERM PRN (00:20)
[2020-03-02] MEDS: ENOXAPARIN 40 MG/0.4 ML SYRINGE SUBCUT SCH (01:00)
[2020-03-02] MEDS: VANCOMYCIN INJ 1,500 MG in SODIUM CHLORIDE 0.9% 500 ML IV SCH ×2 (01:00→17:03)
[2020-03-02] MEDS: PIPERACILLIN/TAZOBACTAM 3,375 MG in SODIUM CHLORIDE 0.9% 100 ML IV SCH ×2 (07:59→20:58)
[2020-03-02] MEDS: SODIUM CHLORIDE 0.9% 1,000 ML IV SCH ×2 (08:13→17:00)
[2020-03-03] MEDS: ENOXAPARIN 40 MG/0.4 ML SYRINGE SUBCUT SCH (00:18)
[2020-03-03] MEDS: VANCOMYCIN INJ 1,500 MG in SODIUM CHLORIDE 0.9% 500 ML IV SCH ×2 (04:00→15:59)
[2020-03-03] MEDS: SODIUM CHLORIDE 0.9% 1,000 ML IV SCH ×2 (04:31→18:07)
[2020-03-03] MEDS: PIPERACILLIN/TAZOBACTAM 3,375 MG in SODIUM CHLORIDE 0.9% 100 ML IV SCH ×3 (06:00→20:53)
[2020-03-03 06:04] LABS: Basophils # 0.1 10*3/uL (0.0-0.2); Basophils % 0.8 % (0.0-0.8); Eosinophils # 0.2 10*3/uL (0.0-0.87); Eosinophils % 2.8 % (0.00-10.9); Hematocrit 41.8 VOL% (42.0-52.0); Hemoglobin 13.6 GM/DL (14.0-18.0); Immature Granulocytes % 0.3 %; Immature Granulocytes Absolute 0.02 #; Lymphocytes # 2.5 10*3/uL (1.4-4.0); Lymphocytes % 38.4 % (21.2-54.2); Mean Corpuscular HGB Conc 32.5 GM/DL (32-36); Mean Corpuscular Volume 86.7 FL (87-102); Mean Platelet Volume 9.1 FL (9.6-12.0); Monocytes % 6.7 % (1.7-12.7); Platelet Count 344 T/CUMM (130-400); Red Blood Count 4.82 MC/CUMM (3.8-5.5); Red Cell Distribution Width 13.2 % (9.3-17.3); White Blood Count 6.4 T/CUMM (4-12)
[2020-03-03 06:27] LABS: Albumin 2.5 G/DL (3.4-5.0); Bilirubin,Total 0.7 MG/DL (0.2-1.0); Calcium 9.2 MG/DL (8.5-10.1); Osmolality,Calculated 276.5 MOS/KG (273-304); Total Protein 7.3 G/DL (6.4-8.3)
[2020-03-03] MEDS ORDERED: BISACODYL 5 MG TABLET PO PRN (14:46)
[2020-03-04] MEDS: SODIUM CHLORIDE 0.9% 1,000 ML IV SCH (01:44)
[2020-03-04] MEDS: ENOXAPARIN 40 MG/0.4 ML SYRINGE SUBCUT SCH (01:44)
[2020-03-04] MEDS: VANCOMYCIN INJ 1,500 MG in SODIUM CHLORIDE 0.9% 500 ML IV SCH (04:25)
[2020-03-04 05:43] LABS: Basophils # 0.1 10*3/uL (0.0-0.2); Basophils % 0.7 % (0.0-0.8); Eosinophils # 0.2 10*3/uL (0.0-0.87); Eosinophils % 2.7 % (0.00-10.9); Hematocrit 43.7 VOL% (42.0-52.0); Hemoglobin 14.3 GM/DL (14.0-18.0); Immature Granulocytes % 0.4 %; Immature Granulocytes Absolute 0.03 #; Lymphocytes # 2.6 10*3/uL (1.4-4.0); Mean Corpuscular HGB Conc 32.7 GM/DL (32-36); Mean Corpuscular Volume 87.1 FL (87-102); Mean Platelet Volume 8.5 FL (9.6-12.0); Monocytes % 5.3 % (1.7-12.7); Neutrophils % 53.9 % (38.7-73.9); Platelet Count 366 T/CUMM (130-400); Red Blood Count 5.02 MC/CUMM (3.8-5.5); Red Cell Distribution Width 13.2 % (9.3-17.3); White Blood Count 7.1 T/CUMM (4-12)
[2020-03-04 06:30] LABS: Osmolality,Calculated 271.8 MOS/KG (273-304)
[2020-03-04] MEDS: PIPERACILLIN/TAZOBACTAM 3,375 MG in SODIUM CHLORIDE 0.9% 100 ML IV SCH (06:35)
[2020-03-04 08:17] VITALS: BP 129/72
== END 2020-03-04 12:25 | disposition home or self-care (01) | DRG 603 ==
LOC: N.ED 21:28 → SUATTDRO 03-02 00:05 → N.EDINP 03-02 00:05 → N.3E 03-02 14:37
PROVIDERS: ADMIT Internal Medicine; ATTEND Internal Medicine